=== PATIENT | female | born 1995 | race Two or more races ===

== ENCOUNTER 2019-07-02 11:32 | Emergency (ER) | payer BC ==
[~2019-07-02] VITALS: Ht 152.4 cm; Wt 63.5 kg
--- NOTE | 2019-07-02 12:02 | NUR ---
BIBS FROM HOME TO ER BED 12. AAOX4. NOT IN RESP DISTRESS. AMBULATORY ON STEADY GAIT. COMING IS FOR DEPRESSION WITH THOUGHT OF SUICIDE W/ PLAN TO RUN HER CAR OFF A CRISTOPHER. PT DENIES HI. PT DENIES VISUAL AND AUDITORY HALLUCINATIONS. PT IS WAS STRIPPED OF CLOTHING, GOWNED AND BELONGINGS PLACED IN LOCKER LOCATED IN UTILITY ROOM. 1:1 SITTER AT BEDSIDE. MD WAS AT BEDSIDE FOR EVAL. URINE HAS BEEN SUBMITTED BY PT AND SENT TO LAB
[2019-07-02] MEDS ORDERED: OLANZAPINE 5 MG TABLET ONE (12:47)
[2019-07-02] MEDS ORDERED: ONDANSETRON 4 MG TAB.RAPDIS ONE (12:47)
--- NOTE | 2019-07-02 12:51 | NUR ---
PT VERBALIZED THAT SHE IS FELING ANXIOUS AND HAD AN EPISODE OF VOMITING X 1. MD MADE AWARE. AND RECEIVED VERBAL ORDER TO GIVE ZYPREXA 10MG POX 1 AND ZOFRAN 4MG X 1. NOTED AND CARRIED OUT.
--- NOTE | 2019-07-02 12:56 | NUR ---
[facility] ([facility]) [phone]
[2019-07-02] MEDS ORDERED: ONDANSETRON 4 MG TAB.RAPDIS SL ONE (13:00)
[2019-07-02] MEDS ORDERED: OLANZAPINE 5 MG TABLET PO ONE (13:00)
[2019-07-02 13:23] LABS: BASOPHILS % (AUTO) 0.4 % (0.0-2.0); EOSINOPHILS % (AUTO) 3.5 % (0.0-6.0); HEMATOCRIT 37 % (33-45); HEMOGLOBIN 12.1 g/dL (11.5-14.8); LYMPHOCYTES # (AUTO) 1.9 /CMM (0.8-4.8); LYMPHOCYTES % (AUTO) 32.7 % (20.0-44.0); MEAN CORPUSCULAR HGB CONC 33 g/dl (31.0-36.0); MEAN CORPUSCULAR VOLUME 76 fL (82-100); MONOCYTES # (AUTO) 0.4 /CMM (0.1-1.30); MONOCYTES % (AUTO) 7.1 % (2.0-12.0); NEUTROPHILS # (AUTO) 3.3 /CMM (1.8-8.9); NEUTROPHILS % (AUTO) 56.3 % (43.0-81.0); PLATELET COUNT (AUTO) 352 /CMM (150-450); RED BLOOD CELL COUNT(AUTO) 4.84 MIL/uL (4.0-5.2); WHITE BLOOD COUNT (AUTO) 5.8 K/uL (4.3-11.0)
[2019-07-02 13:30] LABS: CALCIUM, SERUM 8.9 mg/dL (8.5-10.1); CARBON DIOXIDE 27 mmol/L (21-32); CHLORIDE 104 mmol/L (98-107); CREATININE 0.8 mg/dL (0.6-1.3); GLUCOSE 100 mg/dL (74-106); POTASSIUM 4.1 mmol/L (3.5-5.1); SODIUM SERUM 137 mmol/L (136-145); UREA NITROGEN, BLOOD 6 mg/dL (7-18)
[2019-07-02 13:36] LABS: ACETAMINOPHEN 0 ug/ml (10-30); ALANINE AMINOTRANSFERASE 30 U/L (12-78); ALBUMIN 3.5 g/dL (3.4-5.0); ALCOHOL, BLOOD < 3 mg/dL (0-0); ALKALINE PHOSPHATASE 71 U/L (46-116); ASPARTATE AMINOTRANSFERASE 20 U/L (15-37); BILIRUBIN,DIRECT 0.1 mg/dL (0.0-0.2); BILIRUBIN,TOTAL 0.1 mg/dL (0.2-1.0); SALICYLATE 1.5 mg/dL (2.8-20.0); TOTAL PROTEIN, SERUM 7.3 g/dL (6.4-8.2)
[2019-07-02 13:37] LABS: APPEARANCE,URINE Clear (CLEAR); BILIRUBIN,URINE Negative (NEGATIVE); BLOOD, URINE Negative Ery/uL (NEGATIVE); COLOR,URINE Yellow (YELLOW); KETONES,URINE Negative (NEGATIVE); LEUKOCYTE ESTERASE ,URINE Small (NEGATIVE); NITRITE, URINE Negative (NEGATIVE); PROTEIN,URINE Negative (NEGATIVE); UGLUCOSE Negative (NEGATIVE); UROBILINOGEN,URINE 0.2 EU/dL (0.2)
[2019-07-02 13:38] LABS: BACTERIA,URINE Few /HPF (None Seen); RBC,URINE 0-2 /HPF (0-2); SQUAMOUS EPITHELIAL CELL,UR Few /HPF (None Seen)
--- NOTE | 2019-07-02 16:01 | NUR ---
SW CONSULT MARCELLA consult was requested by ER staff due to the pts suicidal ideation. MARCELLA met with the pt at bedside. Pt is a 24 year old female. Pt was alert and oriented x4 (time, place, self and situation). Pt appeared to be in a depressed mood and presented with an anxious affect. Pt appeared to be calm and cooperative. Pt appeared to be ambulatory with a steady gait. Pt states that she does have suicidal ideation with a plan to team cdl driver her car off of a [place]isel[place]. Pt does indeed have access to a car. Her fianceMargareth ([phone]), currently has it because she used it to drop the pt off in the ER. MARCELLA called the pts Margareth coronado ([phone]), who stated that the pt will have access to the car when she returns and she feels nervous about the statement that was made. Pt states that she has manic episodes and that it has recently started. She stated that she will be feeling good one moment and then her mood will change by the hour. Pt states that she does have a therapist appointment for and a psychiatrist appointment for the following Monday. MARCELLA asked the pt how she feels about being on a voluntary hold to another hospital where she will be seen by a psychiatrist and can receive medications for her moods. Pt agreed to be placed on a voluntary hold. MARCELLA contacted Troy ([phone]) from [facility] and faxed a clinical to the fax number: [phone]. MARCELLA called the pts Margareth coronado ([phone]), and informed her of the plan. Plan: Transfer the pt to [facility] on a voluntary hold.
--- NOTE | 2019-07-02 19:55 | NUR ---
SPOKE WITH DARRELL FROM [facility], NO BED AVAILABLE AT THIS TIME
--- NOTE | 2019-07-02 22:06 | NUR ---
PER ANDER- INTAKE [facility], INSURANCE CLAIM AUDITOR REVIEWING CLINICALS NEEDS APPROX 30 MIN AND WILL CALL BACK WITH UPDATE OF ACCEPTANCE TO [facility]
--- NOTE | 2019-07-02 22:58 | NUR ---
ACCEPTED BY DR LEONARD, UNIT 2, RN FOR REPORT [phone] EXT [phone]
--- NOTE | 2019-07-02 23:00 | NUR ---
ACCEPTED AT [facility]
--- NOTE | 2019-07-02 23:06 | NUR ---
[facility] ETA [id number]
--- NOTE | 2019-07-02 23:09 | NUR ---
PT IN BED SLEEPING. NAD NOTED
--- NOTE | 2019-07-02 23:16 | NUR ---
REPORT GIVEN TO JAQUI RANDOLPH FROM [facility] FOR [facility]
[2019-07-02 23:39] VITALS: BP 122/77
--- NOTE | 2019-07-02 23:40 | NUR ---
REPORT GIVEN TO [facility] UNIT 121 FOR TRANSPORTATION [facility]. PT TRANSFERRED TO [facility] IN STABLE CONDITION, VITAL SIGNS STABLE.
== END 2019-07-02 23:44 | disposition short-term general hospital (02) ==
LOC: ER 11:32
DX: R45.851 Suicidal ideations (principal); F32.9 Major depressive disorder, single episode, unspecified; F41.9 Anxiety disorder, unspecified; Z88.8 Allergy status to other drugs, medicaments and biological substances
CPT/HCPCS: 36415; 80048; 80076; 80305; 80307; 80329; 81001; 84703; 85025; 87086; 99285; G0480; Q0162; 81000-TC